=== PATIENT | male | born 1955 | race Caucasian/White ===

== ENCOUNTER 2017-04-03 09:44 | Emergency (ER) | payer BC, MEDICARE ==
[2017-04-03] MEDS ORDERED: MORPHINE SULFATE 4 MG/ML SYRINGE IVP STA (10:15)
--- NOTE | 2017-04-03 10:18 | ED ---
Back Pain HPI - General Chief Complaint: Back Pain/Injury Stated Complaint: Back pain Time Seen by Provider: 04/03/17 09:58 Source: patient Limitations: no limitations - History of Present Illness Initial Comments: This is a 61-year-old male with a history of hepatocellular carcinoma and chronic back pain who presents emergency department for back pain that is been worsening over the last 3 weeks. He states that it started to get worse after he had radiation treatment approximately one month ago. He states that they had to place him in a body cast so that he wouldn't move and he had significant amount of pain since then. He states that he is been on Dawn for quite some time for his back pain however this is stopped working for him. He states that the pain is in his mid thoracic back and shoots into his epigastric region. He does have some associated nausea and vomiting. He denies any hematemesis. No diarrhea or constipation. He states that it's worse with laying down and better with sitting up. Food does not seem to make it better or worse. His oncologist thought that it might be related to gastritis and started him on omeprazole however he states that this is not improved anything. He denies any numbness, Patrick, weakness in his extremities. No lightheadedness. No fevers or chills. No other complaints. - Related Data Home Medications Medication Instructions Recorded Confirmed Gabapentin 600 mg PO QID 02/23/16 04/03/17 HYDROcodone/APAP 7.5-325MG [[place] 1 tab PO Q4H 02/23/16 04/03/17 7.5-325] Lupin 2.5 mg PO DAILY 09/19/16 04/03/17 Previous Rx's Medication Instructions Recorded Atorvastatin Calcium [Lipitor] 10 mg PO HS #30 tab 02/24/16 Clopidogrel Bisulfate [Plavix] 75 mg PO DAILY #30 tab 02/24/16 Lidocaine 5% Patch [Lidoderm] 1 patch TOPICAL DAILY #5 patch 04/03/17 Methocarbamol [Robaxin] 1,000 mg PO QID #20 tab 04/03/17 oxyCODONE HCL/ACETAMINOPHEN 1 tab PO Q6HR PRN #15 tab 04/03/17 [Percocet 5-325 mg] Allergies Allergy/AdvReac Type Severity Reaction Status Date / Time aspirin Allergy Anaphylaxis Verified 07/03/17 10:01 codeine Allergy Anaphylaxis Verified 04/03/17 10:01 iodine Allergy Anaphylaxis Verified 04/03/17 10:01 Penicillins Allergy Anaphylaxis Verified 04/03/17 10:01 shellfish derived [Shellfish] Allergy Anaphylaxis Verified 04/03/17 10:01 Review of Systems ROS Statement: Those systems with pertinent positive or pertinent negative responses have been documented in the HPI. ROS Other: All systems not noted in ROS Statement are negative. Past Medical History Past Medical History: Cancer, Fibromyalgia, Hyperlipidemia, Osteoarthritis (OA) Additional Past Medical History / Comment(s): chronic back pain. osteoporosis. liver cancer, chemo History of Any Multi-Drug Resistant Organisms: None Reported Past Surgical History: Bladder Surgery, Orthopedic Surgery Additional Past Surgical History / Comment(s): colon and bladder repair, partial liver removal, "catheter placed in liver for chemo 3 months ago." Past Anesthesia/Blood Transfusion Reactions: No Reported Reaction Additional Past Anesthesia/Blood Transfusion Reaction / Comment(s): In past had an allergic reaction. No issues recently Past Psychological History: No Psychological Hx Reported Smoking Status: Current every day smoker Past Alcohol Use History: None Reported Past Drug Use History: Marijuana - Past Family History Father Family Medical History: Cancer, COPD, Hypertension Additional Family Medical History / Comment(s): Colono cancer Mother Family Medical History: Cancer, COPD, Hypertension Additional Family Medical History / Comment(s): Brain General Exam - General Exam Comments Initial Comments: Constitutional: Awake alert appears uncomfortable Head: Normocephalic atraumatic Eyes: no conjunctival injection No scleral icterus EOMI Neck: No JVD Supple Heart: Regular rate rhythm normal S1-S2 no murmurs Lungs: Clear to auscultation bilaterally No wheezing No rales Abdomen: Soft nondistended tenderness to palpation in the epigastric region Back: Exquisite tenderness to palpation along the thoracic spine in the midline Extremities: Non edematous DP pulses intact Radial pulses intact Neuro: A&Ox3 No focal neurologic deficits Psych: Appropriate mood and affect Limitations: no limitations Course Vital Signs 04/03/17 09:46 Temperature 97.7 F Pulse Rate 81 Respiratory 20 Rate Blood Pressure 140/90 O2 Sat by Pulse 98 Oximetry - Reevaluation(s) Reevaluation #1: 04/03/17 10:42 EKG showing normal sinus rhythm with a rate of 72. No abnormal ST segment changes or T-wave inversions. QTC is 402. Other intervals are normal. No ectopy. Medical Decision Making - Medical Decision Making Is a 61-year-old male with a history of chronic back pain who presented for worsening pain. Due to his history of hepatocellular carcinoma as well as check liver function and pancreatic enzymes. All these were unremarkable. X- ray of the thoracic spine and chest were unremarkable as well. The patient had improved pain after Dilaudid, Lidoderm, and Robaxin. Going to send him home with Percocet, Lidoderm patches, and Robaxin. He is going to follow-up with his information technology specialist in the next 2 days. I told him to return the emergency Department if he has worsening or changing symptoms. All questions were answered. - Lab Data Result diagrams: 04/03/17 10:32 04/03/17 10:32 Lab Results 04/03/17 04/03/17 Range/Units 10:32 10:32 WBC 8.4 (3.8-10.6) k/uL RBC 5.25 (4.30-5.90) m/uL Hgb 16.6 (13.0-17.5) gm/dL Hct 48.7 (39.0-53.0) % MCV 92.7 (80.0-100.0) fL MCH 31.6 (25.0-35.0) pg MCHC 34.1 (31.0-37.0) g/dL RDW 13.1 (11.5-15.5) % Plt Count 182 (150-450) k/uL Neutrophils % 78 % Lymphocytes % 11 % Monocytes % 5 % Eosinophils % 5 % Basophils % 0 % Neutrophils # 6.5 (1.3-7.7) k/uL Lymphocytes # 0.9 L (1.0-4.8) k/uL Monocytes # 0.4 (0-1.0) k/uL Eosinophils # 0.4 (0-0.7) k/uL Basophils # 0.0 (0-0.2) k/uL Sodium 141 (137-145) mmol/L Potassium 4.5 (3.5-5.1) mmol/L Chloride 103 (98-107) mmol/L Carbon Dioxide 25 (22-30) mmol/L Anion Gap 13 mmol/L BUN 8 L (9-20) mg/dL Creatinine 0.73 (0.66-1.25) mg/dL Est GFR (MDRD) Af Amer >60 (>60 ml/min/1.73 sqM) Est GFR (MDRD) Non-Af >60 (>60 ml/min/1.73 sqM) Glucose 103 H (74-99) mg/dL Calcium 10.1 (8.4-10.2) mg/dL Total Bilirubin 0.9 (0.2-1.3) mg/dL AST 40 (17-59) U/L ALT 31 (21-72) U/L Alkaline Phosphatase 75 (38-126) U/L Total Protein 8.5 H (6.3-8.2) g/dL Albumin 5.0 (3.5-5.0) g/dL Amylase 62 (30-110) U/L Lipase 40 (23-300) U/L Disposition Clinical Impression: Back pain Disposition: HOME SELF-CARE Condition: Stable Instructions: Acute Low Back Pain (ED) Additional Instructions: If your insurance does not cover the Lidoderm patches please apple picking supervisor over-the- counter Salonpas patches Prescriptions: Lidocaine 5% Patch [Lidoderm] 1 patch TOPICAL DAILY #5 patch Methocarbamol [Robaxin] 1,000 mg PO QID #20 tab oxyCODONE HCL/ACETAMINOPHEN [Percocet 5-325 mg] 1 tab PO Q6HR PRN #15 tab PRN Reason: Severe Pain Referrals: Tyesha Alexis DO [Primary Care Provider] - 1-2 days
[2017-04-03 10:41] LABS: Basophils % (A) 0 %; CH 32.3; Eosinophils # (A) 0.4 k/uL (0-0.7); Eosinophils % (A) 5 %; HCT 48.7 % (39.0-53.0); HDW 2.67; HGB 16.6 gm/dL (13.0-17.5); Luc # (Auto) 0.14; Luc % (Auto) 2; Lymphocytes # (A) 0.9 k/uL (1.0-4.8); Lymphocytes % (A) 11 %; MCH 31.6 pg (25.0-35.0); MCHC 34.1 g/dL (31.0-37.0); MCV 92.7 fL (80.0-100.0); Mean Platelet Volume 8.8; Monocytes # (A) 0.4 k/uL (0-1.0); Monocytes % (A) 5 %; Neutrophils # (A) 6.5 k/uL (1.3-7.7); Neutrophils % (A) 78 %; RBC 5.25 m/uL (4.30-5.90); RDW 13.1 % (11.5-15.5); WBC 8.4 k/uL (3.8-10.6); WBC (Perox) 7.96
[2017-04-03 10:56] LABS: Amylase 62 U/L (30-110); Anion Gap 13 mmol/L; Calcium 10.1 mg/dL (8.4-10.2); Carbon Dioxide 25 mmol/L (22-30); Chloride 103 mmol/L (98-107); Glucose 103 mg/dL (74-99); Non-African American GFR(MDRD) >60 (>60 ml/min/1.73 sqM); Sodium 141 mmol/L (137-145); Total Bilirubin 0.9 mg/dL (0.2-1.3); Total Protein 8.5 g/dL (6.3-8.2)
[2017-04-03 11:02] LABS: Potassium 4.5 mmol/L (3.5-5.1)
[2017-04-03 11:03] LABS: ALT 31 U/L (21-72); AST 40 U/L (17-59); Alkaline Phosphatase 75 U/L (38-126); Blood Urea Nitrogen 8 mg/dL (9-20)
[2017-04-03] MEDS ORDERED: LIDOCAINE 5% PATCH TOPICAL STA (11:07)
[2017-04-03] MEDS ORDERED: METHOCARBAMOL 500 MG TAB PO STA (11:07)
[2017-04-03] MEDS ORDERED: HYDROmorphone 1 MG/ML 1 ML SYRINGE IVP STA (11:07)
--- NOTE | 2017-04-03 11:07 | XR ---
EXAMINATION TYPE: XR thoracic spine 2V DATE OF EXAM: 04/03/2017 COMPARISON: NONE HISTORY: Pain TECHNIQUE: Three-view thoracic spine FINDINGS: There are 12 thoracic type vertebral bodies. Pedicles are intact. There is a scoliosis pres ent with convexity to the left centered at T8. Vertebral body heights are preserved. Minimal spondylo sis is present. IMPRESSION: 1. Mild degenerative changes and scoliosis.
--- NOTE | 2017-04-03 11:10 | XR ---
EXAMINATION TYPE: XR chest 2V DATE OF EXAM: 04/03/2017 COMPARISON: 02/23/2016 INDICATION: Pain TECHNIQUE: Frontal and lateral views of the chest are obtained. FINDINGS: The heart size is normal. The pulmonary vasculature is normal. The lungs are clear. Some degenerative changes within the thoracic spine. IMPRESSION: 1. No acute pulmonary process.
[2017-04-03 11:56] VITALS: BP 144/87; PULSE 71; RESP 18; TEMP 96.4
== END 2017-04-03 11:56 | disposition home or self-care (01) ==
LOC: EC 09:44
DX: M54.6 Pain in thoracic spine (principal); G89.29 Other chronic pain; R10.13 Epigastric pain; R11.2 Nausea with vomiting, unspecified; M79.7 Fibromyalgia; M19.90 Unspecified osteoarthritis, unspecified site; F17.200 Nicotine dependence, unspecified, uncomplicated; Z79.899 Other long term (current) drug therapy; Z88.6 Allergy status to analgesic agent; Z88.5 Allergy status to narcotic agent; Z88.0 Allergy status to penicillin; Z91.013 Allergy to seafood; Z88.8 Allergy status to other drugs, medicaments and biological substances; Z85.05 Personal history of malignant neoplasm of liver; Z98.890 Other specified postprocedural states
CPT/HCPCS: 36415; 93005; 80053; 82150; 83690; 85025; 72070; 71020; 99284; 96374; 96375; J2270; J1170

== ENCOUNTER 2017-05-22 10:45 | Emergency (ER) | payer BC, MEDICARE ==
[2017-05-22 10:52] VITALS: RESP 18
[2017-05-22] MEDS ORDERED: RX INFO: IV CONTRAST WAS GIVEN 1 EACH MISC MISCELLANE PRN (11:20)
[2017-05-22] MEDS ORDERED: SODIUM CHLORIDE 0.9% 2,000 ML IV STA (11:20)
[2017-05-22] MEDS ORDERED: ONDANSETRON 4 MG/2 ML VIAL IVP STA (11:20)
[2017-05-22] MEDS ORDERED: HYDROmorphone 1 MG/ML 1 ML SYRINGE IVP STA (11:20)
[2017-05-22] MEDS ORDERED: FAMOTIDINE 20 MG/2 ML VIAL IV STA (11:21)
[2017-05-22] MEDS ORDERED: diphenhydrAMINE 50 MG/ML 1 ML VIAL IVP STA (11:21)
[2017-05-22] MEDS ORDERED: methylPREDNISolone SOD SUCCI 125 MG/2 ML VIAL IV STA (11:21)
--- NOTE | 2017-05-22 12:01 | ED ---
Abdominal Pain HPI - General Chief Complaint: Abdominal Pain Stated Complaint: abd pain Time Seen by Provider: 05/22/17 11:04 Source: patient, RN notes reviewed, old records reviewed Mode of arrival: wheelchair Limitations: no limitations - History of Present Illness Initial Comments: This is a 61-year-old male presents emergency Department chief complaint of diffuse abdominal pain for the past 2 days. He reports that he's been battling with the similar complaints and vomiting since he is completed radiation for liver cancer. Patient reports that he finished radiation has been having the symptoms for the past few months. Patient states that he's had no blood in the stools or vomit. Denies any urinary symptoms. Patient states that he's had uncontrollable retching over the past 12 hours which brought him to come in. Patient denies any recent fevers but states he feels chilled. Denies any chest pain or shortness of breath. - Related Data Home Medications Medication Instructions Recorded Confirmed Gabapentin 600 mg PO QID 02/23/16 05/22/17 HYDROcodone/APAP 7.5-325MG [[place] 1 tab PO Q4H 02/23/16 05/22/17 7.5-325] Lupin 2.5 mg PO DAILY 09/19/16 05/22/17 oxyCODONE HCL 10 mg PO Q6HR PRN 05/22/17 05/22/17 Previous Rx's Medication Instructions Recorded Atorvastatin Calcium [Lipitor] 10 mg PO HS #30 tab 02/24/16 Clopidogrel Bisulfate [Plavix] 75 mg PO DAILY #30 tab 02/24/16 Lidocaine 5% Patch [Lidoderm] 1 patch TOPICAL DAILY #5 patch 04/03/17 Methocarbamol [Robaxin] 1,000 mg PO QID #20 tab 04/03/17 Omeprazole 40 mg PO DAILY #30 capsule. 05/22/17 Ondansetron Odt [Zofran Odt] 4 mg PO Q8HR PRN #12 tab 05/22/17 Sucralfate [Carafate] 1 gm PO BID #20 tablet 05/22/17 Allergies Allergy/AdvReac Type Severity Reaction Status Date / Time aspirin Allergy Anaphylaxis Verified 05/22/17 11:33 codeine Allergy Anaphylaxis Verified 05/22/17 11:33 iodine Allergy Anaphylaxis Verified 05/22/17 11:33 Penicillins Allergy Anaphylaxis Verified 05/22/17 11:33 shellfish derived [Shellfish] Allergy Anaphylaxis Verified 05/22/17 11:33 Review of Systems ROS Statement: Those systems with pertinent positive or pertinent negative responses have been documented in the HPI. ROS Other: All systems not noted in ROS Statement are negative. Past Medical History Past Medical History: Cancer, Fibromyalgia, Hyperlipidemia, Osteoarthritis (OA) Additional Past Medical History / Comment(s): chronic back pain. osteoporosis. liver cancer, chemo History of Any Multi-Drug Resistant Organisms: None Reported Past Surgical History: Bladder Surgery, Orthopedic Surgery Additional Past Surgical History / Comment(s): colon and bladder repair, partial liver removal, "catheter placed in liver for chemo 3 months ago." Past Anesthesia/Blood Transfusion Reactions: No Reported Reaction Additional Past Anesthesia/Blood Transfusion Reaction / Comment(s): In past had an allergic reaction. No issues recently Past Psychological History: No Psychological Hx Reported Smoking Status: Current every day smoker Past Alcohol Use History: None Reported Past Drug Use History: Marijuana - Past Family History Father Family Medical History: Cancer, COPD, Hypertension Additional Family Medical History / Comment(s): Colono cancer Mother Family Medical History: Cancer, COPD, Hypertension Additional Family Medical History / Comment(s): Brain General Exam - General Exam Comments Initial Comments: Well-appearing 61-year-old male. Patient is actively vomiting and retching upon entry to the exam room. Senna the patient's had a yellow bile-like emesis. Limitations: no limitations General appearance: alert, in no apparent distress Head exam: Present: atraumatic, normocephalic, normal inspection Eye exam: Present: normal appearance, PERRL, EOMI. Absent: scleral icterus, conjunctival injection, periorbital swelling ENT exam: Present: normal exam, mucous membranes moist Neck exam: Present: normal inspection Respiratory exam: Present: normal lung sounds bilaterally. Absent: respiratory distress, wheezes, rales, rhonchi, stridor Cardiovascular Exam: Present: regular rate, normal rhythm, normal heart sounds. Absent: systolic murmur, diastolic murmur, rubs, gallop, clicks GI/Abdominal exam: Present: soft, tenderness (Has epigastric tenderness.), normal bowel sounds. Absent: distended, guarding, rebound, rigid Extremities exam: Present: normal inspection, full ROM, normal capillary refill. Absent: tenderness, pedal edema, joint swelling, calf tenderness Back exam: Present: normal inspection Neurological exam: Present: alert, oriented X3, CN II-XII intact Psychiatric exam: Present: normal affect, normal mood Course Vital Signs 05/22/17 10:50 Temperature 97.7 F Pulse Rate 76 Respiratory 18 Rate Blood Pressure 164/94 O2 Sat by Pulse 100 Oximetry Medical Decision Making - Lab Data Result diagrams: 05/22/17 11:40 05/22/17 11:40 Lab Results 05/22/17 05/22/17 05/22/17 Range/Units 11:40 11:40 11:40 WBC 11.6 H (3.8-10.6) k/uL RBC 5.03 (4.30-5.90) m/uL Hgb 16.0 (13.0-17.5) gm/dL Hct 47.8 (39.0-53.0) % MCV 95.0 (80.0-100.0) fL MCH 31.9 (25.0-35.0) pg MCHC 33.6 (31.0-37.0) g/dL RDW 13.7 (11.5-15.5) % Plt Count 260 (150-450) k/uL Neutrophils % 86 % Lymphocytes % 9 % Monocytes % 3 % Eosinophils % 1 % Basophils % 0 % Neutrophils # 9.9 H (1.3-7.7) k/uL Lymphocytes # 1.1 (1.0-4.8) k/uL Monocytes # 0.4 (0-1.0) k/uL Eosinophils # 0.1 (0-0.7) k/uL Basophils # 0.1 (0-0.2) k/uL Sodium 142 (137-145) mmol/L Potassium 4.2 (3.5-5.1) mmol/L Chloride 103 (98-107) mmol/L Carbon Dioxide 27 (22-30) mmol/L Anion Gap 12 mmol/L BUN 9 (9-20) mg/dL Creatinine 0.82 (0.66-1.25) mg/dL Est GFR (MDRD) Af Amer >60 (>60 ml/min/1.73 sqM) Est GFR (MDRD) Non-Af >60 (>60 ml/min/1.73 sqM) Glucose 96 (74-99) mg/dL Calcium 10.1 (8.4-10.2) mg/dL Total Bilirubin 0.8 (0.2-1.3) mg/dL AST 28 (17-59) U/L ALT 29 (21-72) U/L Alkaline Phosphatase 86 (38-126) U/L Total Protein 8.4 H (6.3-8.2) g/dL Albumin 4.9 (3.5-5.0) g/dL Amylase 63 (30-110) U/L Lipase 50 (23-300) U/L Urine Color Yellow Urine Appearance Clear (Clear) Urine pH 8.0 (5.0-8.0) Ur Specific [place] 1.018 (1.001-1.035) Urine Protein Trace H (Negative) Urine Glucose (UA) Negative (Negative) Urine Ketones Negative (Negative) Urine Blood Negative (Negative) Urine Nitrite Negative (Negative) Urine Bilirubin Negative (Negative) Urine Urobilinogen 2.0 (<2.0) mg/dL Ur Leukocyte Esterase Negative (Negative) - Radiology Data Radiology results: report reviewed Postoral drainage involving the liver the 2.8 cm lesion near the surgical resection site. Nonspecific finding. Recommended follow-up with MRI. Wall thickening of the gastric antrum correlating for gastritis or peptic ulcer disease. Mild chronic cystitis. Gallbladder slightly distended with some very mild intrahepatic or extrahepatic biliary disease dilation. Correlate clinically. No gallstones. Disposition Clinical Impression: Gastritis, Peptic ulcer Disposition: HOME SELF-CARE Condition: Good Instructions: Peptic Ulcer (ED) Additional Instructions: Follow-up with GI specialist. Return to the emergency department if any alarming symptoms occur. Patient needs to have clear liquids for the next 12- 24 hours, slowly increase your diet. Avoid any acidic foods. Prescriptions: Omeprazole 40 mg PO DAILY #30 capsule. Ondansetron Odt [Zofran Odt] 4 mg PO Q8HR PRN #12 tab PRN Reason: Nausea Sucralfate [Carafate] 1 gm PO BID #20 tablet Referrals: Tyesha Alexis DO [Primary Care Provider] - 1-2 days Álvaro Romero MD [STAFF PHYSICIAN] - 1-2 days Time of Disposition: 13:36
[2017-05-22 12:11] LABS: Basophils # (A) 0.1 k/uL (0-0.2); Basophils % (A) 0 %; CH 32.6; CHCM 34.5; Eosinophils # (A) 0.1 k/uL (0-0.7); Eosinophils % (A) 1 %; HCT 47.8 % (39.0-53.0); Luc # (Auto) 0.11; Luc % (Auto) 1; Lymphocytes # (A) 1.1 k/uL (1.0-4.8); Lymphocytes % (A) 9 %; MCH 31.9 pg (25.0-35.0); MCHC 33.6 g/dL (31.0-37.0); Mean Platelet Volume 9.1; Monocytes # (A) 0.4 k/uL (0-1.0); Monocytes % (A) 3 %; Neutrophils # (A) 9.9 k/uL (1.3-7.7); Neutrophils % (A) 86 %; RBC 5.03 m/uL (4.30-5.90); RDW 13.7 % (11.5-15.5); WBC 11.6 k/uL (3.8-10.6); WBC (Perox) 11.94
[2017-05-22 12:12] LABS: Appearance,Urine Clear (Clear); Bilirubin,Urine Negative (Negative); Glucose,Urine (UA) Negative (Negative); Ketones,Urine Negative (Negative); Leukocyte Esterase,Urine Negative (Negative); Nitrite,Urine Negative (Negative); Protein,Urine Trace (Negative); Specific Gravity,Urine 1.018 (1.001-1.035); UA Billing (MACRO vs. MICRO) CHEM
[2017-05-22 12:19] LABS: ALT 29 U/L (21-72); AST 28 U/L (17-59); Alkaline Phosphatase 86 U/L (38-126); Amylase 63 U/L (30-110); Anion Gap 12 mmol/L; Blood Urea Nitrogen 9 mg/dL (9-20); Calcium 10.1 mg/dL (8.4-10.2); Carbon Dioxide 27 mmol/L (22-30); Chloride 103 mmol/L (98-107); Glucose 96 mg/dL (74-99); Non-African American GFR(MDRD) >60 (>60 ml/min/1.73 sqM); Potassium 4.2 mmol/L (3.5-5.1); Sodium 142 mmol/L (137-145); Total Bilirubin 0.8 mg/dL (0.2-1.3); Total Protein 8.4 g/dL (6.3-8.2)
--- NOTE | 2017-05-22 12:35 | CT ---
EXAMINATION TYPE: CT abdomen pelvis w con DATE OF EXAM: 05/22/2017 COMPARISON: NONE HISTORY: Abdominal pain CT DLP: 1343 mGycm Automated exposure control for dose reduction was used. CONTRAST: CT scan of the abdomen pelvis is performed with IV Contrast, patient injected with 100 mL of Omnipaqu e 240. FINDINGS- LUNG BASES- No significant abnormality is appreciated. LIVER/GB-appears to be evidence of previous resection of a portion of the liver with particular atten tion a left lobe. There is a low attenuating 2.8 cm lesion with peripheral hyperemia measuring 28 [place] units. There is very mild intrahepatic biliary ductal dilation the gallbladder slightly prominent size. Extr ahepatic common bile duct measures approximately 8 mm and also appears to be slightly thickened. PANCREAS- No gross abnormality is seen. SPLEEN- No gross abnormality is seen. ADRENALS- No gross abnormality is seen. KIDNEYS/BLADDER- no hydronephrosis nephrolithiasis or renal mass. Mild bladder wall thickening noted. Prostate calcification also noted. BOWEL- no bowel dilatation. To be some hyperemia to the gastric wall with thickening of the gastric antrum. Related for gastritis or peptic ulcer disease. Neoplastic process not excluded. LYMPH NODES- No greater than 1cm abdominal or pelvic lymph nodes are appreciated. OSSEOUS STRUCTURES-hypertrophic change of the spine with mild degenerative disc disease noted. OTHER- atherosclerotic change aorta which appears to be of normal caliber. Portal vein enhances. Mes enteric vasculature enhances. Suspect a small right hydrocele. IMPRESSION- 1. Postsurgical change involving the liver with a 2.8 cm lesion near the surgical resection site. Thi s is nonspecific finding measures 28 [place]ouns[place] units which is not compatible simple cyst. Recommend follow-up MRI. 2. wall thickening of the gastric antrum correlate for gastritis or peptic ulcer disease. 3. Correlate for mild chronic cystitis. # 4. Gallbladder slightly distended with very mild intrahepatic and extra hepatic biliary dilation. Cor relate clinically. No gallstones.
[2017-05-22 14:00] VITALS: BP 124/79; PULSE 66; TEMP 98.2
== END 2017-05-22 14:00 | disposition home or self-care (01) ==
LOC: EC 10:45
DX: K25.9 Gastric ulcer, unspecified as acute or chronic, without hemorrhage or perforation (principal); M19.90 Unspecified osteoarthritis, unspecified site; M79.7 Fibromyalgia; F17.200 Nicotine dependence, unspecified, uncomplicated; Z85.05 Personal history of malignant neoplasm of liver; Z79.891 Long term (current) use of opiate analgesic; Z79.899 Other long term (current) drug therapy; Z88.0 Allergy status to penicillin; Z88.5 Allergy status to narcotic agent; Z88.6 Allergy status to analgesic agent; Z91.013 Allergy to seafood; Z88.8 Allergy status to other drugs, medicaments and biological substances
CPT/HCPCS: 36415; 80053; 82150; 83690; 85025; 81003; 74177; 99285; 96374; 96375 ×4; 96361 ×2; J1200; J2930; J2405; J1170; Q9967

== ENCOUNTER → 2024-09-16 | Outpatient (CLI) | payer BC, MEDICARE | END | disposition home or self-care (01) | LOC: LABWHC1 09:02 | PROVIDERS: ATTEND Psychiatry & Neurology Neurology | DX: H02.403 Unspecified ptosis of bilateral eyelids (principal); H53.8 Other visual disturbances; M62.81 Muscle weakness (generalized); H57.13 Ocular pain, bilateral; R51.9 Headache, unspecified | CPT/HCPCS: 36415; 82550 ==